=== PATIENT | female | born 1975 | race Caucasian/White ===

== ENCOUNTER 2018-04-11 03:39 | Emergency (ER) | payer OTHER ==
[2018-04-11 04:20] LABS: Protime INR 1.1
[2018-04-11 04:22] LABS: Absolute Lymphocytes (CBC) 2.8 K/uL (0.7-4.9); Absolute Monocytes 0.8 K/uL (0.1-1.3); Absolute Neutrophil 7.8 K/uL (1.8-8.0); Basophils % 0.8 % (0-1.3); Eosinophils % 1.3 % (0-4.4); Hematocrit 37.4 % (36.0-45.0); Lymphocytes % 23.7 % (15.3-44.8); MCH 29.4 pg (27.0-35.0); MCV 84.8 fL (80-100); MPV 9.7 fL (7.6-11.3); Monocytes % 7.3 % (3.3-12.3); RBC Red Blood Cell Count 4.41 M/uL (3.86-4.86)
--- NOTE | 2018-04-11 04:30 | EDPHYS ---
Physician Documentation [facility] Name: Juanita Cates Age: 42 yrs Sex: Female : 1975 Arrival Date: 04/11/2018 Time: 03:44 Bed 6 Private MD: ED Physician Timo Banegas HPI: 04/11 03:51 This 42 yrs old Female presents to ER via Unassigned with complaints of post ps1 operative pain. 03:51 patient is 2 weeks s/p laproscopic ablation for endometriosis. Patient of Dr. Otto in ps1 [place]. Pain felt like a popping sensation. Pain rated as moderate. Pain then traveled to chest and right shoulder. No shortness of breath. No hypoxia. . Historical: - Allergies: 04:02 No Known Allergies; bb - Home Meds: 04:02 suboxone 8 mg daily [Active]; Lyrica oral oral [Active]; Lasix Oral [Active]; Prozac bb Oral [Active]; Seroquel Oral [Active]; cholesterol medication [Active]; - PMHx: 04:02 VSD; Pinched nerve in neck; High Cholesterol; Fibromyalgia; bb - PSHx: 04:02 Heart Surgery; ectopic ; abdominal surgery for endometriosis; bb 04:09 Cholecystectomy; tl1 - Immunization history:: Adult Immunizations unknown. - Social history:: Smoking status: Patient uses tobacco products, smokes one-half pack cigarettes per day, Patient/guardian denies using alcohol, street drugs. - Ebola Screening: : No symptoms or risks identified at this time. ROS: 03:51 Constitutional: Negative for fever, chills, and weight loss, Eyes: Negative for injury, ps1 pain, redness, and discharge, Respiratory: Negative for shortness of breath, cough, wheezing, and pleuritic chest pain, : Negative for injury, bleeding, discharge, and swelling, MS/Extremity: Negative for injury and deformity, Skin: Negative for injury, rash, and discoloration, Neuro: Negative for headache, weakness, numbness, tingling, and seizure. 03:51 Cardiovascular: Positive for chest pain. 03:51 Abdomen/GI: Positive for abdominal pain. Exam: 03:51 Constitutional: This is a well developed, well nourished patient who is awake, alert, ps1 and in no acute distress. Head/Face: Normocephalic, atraumatic. Eyes: Pupils equal round and reactive to light, extra-ocular motions intact. Lids and lashes normal. Conjunctiva and sclera are non-icteric and not injected. Chest/axilla: Normal chest wall appearance and motion. Nontender with no deformity. No lesions are appreciated. Cardiovascular: Regular rate and rhythm. No gallops, murmurs, or rubs. Normal PMI, no JVD. No pulse deficits. Respiratory: Lungs have equal breath sounds bilaterally, clear to auscultation and percussion. No rales, rhonchi or wheezes noted. No increased work of breathing, no retractions or nasal flaring. Skin: Warm, dry with normal turgor. Normal color with no rashes, no lesions, and no evidence of cellulitis. MS/ Extremity: Pulses equal, no cyanosis. Neurovascular intact. Full, normal range of motion. Neuro: Awake and alert, GCS 15, oriented to person, place, time, and situation. Cranial nerves II-XII grossly intact. Sensory grossly intact. 03:51 Abdomen/GI: Inspection: scar(s), are noted in the suprapubic area and right lower quadrant, appear CDI. Vital Signs: 04:02 BP 142 / 94; Pulse 87; Resp 16 S; Temp 98(O); Pulse Ox 98% on R/A; Weight 82.55 kg (R); bb Height 5 ft. 2 in. (157.48 cm) (R); Pain 7/10; 04:02 Body Mass Index 33.29 (82.55 kg, 157.48 cm) bb MDM: 03:55 Patient medically screened. ps1 04:28 ED course: patient had family issues with son with aspergers. Left AMA and said she ps1 would return after she deals with family issues. NAD. . 11 03:51 Order name: CBC with Diff ps1 04/11 03:51 Order name: NT PRO-BNP ps1 04/11 03:51 Order name: PT-INR ps1 04/11 03:51 Order name: Troponin (emerg Dept Use Only) ps1 04/11 03:51 Order name: CMP ps1 04/11 03:51 Order name: EKG; Complete Time: 03:52 ps1 04/11 03:51 Order name: Cardiac monitoring; Complete Time: 04:07 ps1 04/11 03:51 Order name: EKG - Nurse/Tech; Complete Time: 04:07 ps1 04/11 03:51 Order name: Labs collected and sent; Complete Time: 04:08 ps1 04/11 03:51 Order name: O2 Per Protocol; Complete Time: 04:08 ps1 04/11 03:51 Order name: O2 Sat Monitoring; Complete Time: 04:08 ps1 Administered Medications: No medications were administered Disposition: 04/11/18 04:30 Patient has left against medical advice. Impression: Abdominal pain, Post surgical pain. - Patients states they are going to Home. - Condition is Stable. - Problem is new. - Symptoms are unchanged. Signatures: Dispatcher [employer] [facility] Patricia Delong RN RN bb Latisha Xiong RN RN tl1 Timo Banegas MD MD ps1 Corrections: (The following items were deleted from the chart) 04:30 03:52 Abdomen Pelvis W Con+CT.RAD.BRZ ordered. [facility] 04:30 04:30 04/11/2018 04:30 Patients has left against medical advice. Impression: Abdominal bb pain; Post surgical pain. Patient states they are going to Home. Condition is Stable. Problem is new. Symptoms are unchanged. ps1
--- NOTE | 2018-04-11 04:30 | ER ---
Nurse's Notes [facility] Name: Juanita Cates Age: 42 yrs Sex: Female : 1975 Arrival Date: 04/11/2018 Time: 03:44 Bed 6 Private MD: Diagnosis: Abdominal pain;Post surgical pain Presentation: 04/11 03:54 Presenting complaint: Patient states: she had abdominal exploratory surgery 2 weeks ago bb for endometriosis and last night at approx 2200 she felt something "pop" then felt like she had a "bubble" and is having some abdominal discomfort. Transition of care: patient was not received from another setting of care. Onset of symptoms was April 10, 2018. Risk Assessment: Do you want to hurt yourself or someone else? Patient reports no desire to harm self or others. Initial Sepsis Screen: Does the patient meet any 2 criteria? No. Patient's initial sepsis screen is negative. Does the patient have a suspected source of infection? No. Patient's initial sepsis screen is negative. Care prior to arrival: None. 03:54 Method Of Arrival: Ambulatory bb 03:54 Acuity: ROB 4 bb Historical: - Allergies: 04:02 No Known Allergies; bb - Home Meds: 04:02 suboxone 8 mg daily [Active]; Lyrica oral oral [Active]; Lasix Oral [Active]; Prozac bb Oral [Active]; Seroquel Oral [Active]; cholesterol medication [Active]; - PMHx: 04:02 VSD; Pinched nerve in neck; High Cholesterol; Fibromyalgia; bb - PSHx: 04:02 Heart Surgery; ectopic ; abdominal surgery for endometriosis; bb 04:09 Cholecystectomy; tl1 - Immunization history:: Adult Immunizations unknown. - Social history:: Smoking status: Patient uses tobacco products, smokes one-half pack cigarettes per day, Patient/guardian denies using alcohol, street drugs. - Ebola Screening: : No symptoms or risks identified at this time. Assessment: 04:25 Reassessment: pt opted to go home against medical advice though risks and consequences bb explained states she is having some family problems she has to take care of first. Instructed pt if symptoms worsen or change she is welcome to return to the emergency department as needed. Pt signed AMA form and ambulated with steady gait to exit. Vital Signs: 04:02 BP 142 / 94; Pulse 87; Resp 16 S; Temp 98(O); Pulse Ox 98% on R/A; Weight 82.55 kg (R); bb Height 5 ft. 2 in. (157.48 cm) (R); Pain 7/10; 04:02 Body Mass Index 33.29 (82.55 kg, 157.48 cm) bb ED Course: 03:44 Patient arrived in ED. ds1 03:50 Timo Banegas MD is Attending Physician. ps1 03:56 Triage completed. bb 04:02 Arm band placed on Patient placed in an exam room, on a stretcher, on pulse oximetry. bb Administered Medications: No medications were administered Outcome: 04:27 AMA AMA form signed bb 04:30 Patient left the ED. bb Signatures: Aye Monahan ds1 Patricia Delong, RN RN bb Latisha Xiong RN RN tl1 Timo Banegas MD MD ps1
[2018-04-11 04:48] LABS: ALT/SGPT 19 U/L (12-78); AST/SGOT 17 U/L (15-37); Albumin 4.1 g/dL (3.4-5.0); Alkaline Phosphatase 101 U/L (45-117); BUN Blood Urea Nitrogen 23 mg/dL (7-18); Bicarbonate 27 mmol/L (21-32); Bilirubin Total 0.2 mg/dL (0.2-1.0); Glucose Level 99 mg/dL (74-106); NT PRO-BNP 107 pg/mL (<125); Potassium 3.9 mmol/L (3.5-5.1); Protein, Total 8.6 g/dL (6.4-8.2); Sodium Level 134 mmol/L (136-145); Troponin (Emerg Dept Use Only) < 0.02 ng/mL (0.0-0.045)
--- NOTE | 2018-04-11 08:57 | EKG ---
Test Date: 2018-04-11 Test Time: 04:09:51 Italian Tutor: GALILEO MEASUREMENT RESULTS: Intervals: Rate: 69 DE: 148 QRSD: 90 QT: 412 QTc: 441 Leslie: P: 16 DE: 148 QRS: 12 T: 26 INTERPRETIVE STATEMENTS: Normal sinus rhythm Normal ECG No previous ECG available for comparison Electronically Signed On 04-11-18 08:56:48 CDT by Abraham Lemon
== END 2018-04-11 04:30 | disposition left against medical advice (07) ==
LOC: ER 03:39
DX: G89.18 Other acute postprocedural pain (principal); E78.00 Pure hypercholesterolemia, unspecified; Z98.890 Other specified postprocedural states
CPT/HCPCS: 36415; 80053; 83880; 84484; 85025; 85610; 93005; 99282